=== PATIENT | male | born 2000 | race African-American/Black ===

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

== ENCOUNTER 2023-06-10 12:48 | Emergency (ER) | payer OTHER ==
[~2023-06-10] VITALS: Ht 182.9 cm; Wt 77.3 kg
[2023-06-10 13:06] VITALS: BP 135/99; TEMP 97.8
[2023-06-10] MEDS ORDERED: cefTRIAXone 1 G,Lidocaine PF 1% 2.1 ML IM ONE (16:15)
[2023-06-10] MEDS ORDERED: CEPHALEXIN500 M1 PO (16:22)
[2023-06-10 16:48] VITALS: PULSE 81
== END 2023-06-10 16:48 | disposition home or self-care (01) ==
LOC: COL.ER 12:48
DX: L02.511 Cutaneous abscess of right hand (principal); L03.011 Cellulitis of right finger
CPT/HCPCS: J0696